=== PATIENT | male | born 1980 | race Hispanic/Latino ===

== ENCOUNTER 2019-06-19 21:25 | Emergency (ER) | payer OTHER ==
[2019-06-19] MEDS ORDERED: CYCLOBENZAPRINE HCL 10 MG TABLET ONE (22:21)
[2019-06-19] MEDS ORDERED: TRAMADOL HCL 50 MG TABLET ONE (22:21)
== END 2019-06-19 23:40 | disposition home or self-care (01) ==
LOC: EDBD 21:25 → EDH 21:25 → EEVIPCON 21:25 → EDH 23:40
DX: S13.9XXA Sprain of joints and ligaments of unspecified parts of neck, initial encounter (principal); Z72.0 Tobacco use; X58.XXXA Exposure to other specified factors, initial encounter; Y93.89 Activity, other specified; Y92.89 Other specified places as the place of occurrence of the external cause; Y99.8 Other external cause status
CPT/HCPCS: 72040; 72125

== ENCOUNTER → 2019-07-29 | Outpatient (CLI) | payer OTHER | END | disposition home or self-care (01) | LOC: EEVIPCON 13:45 → RAH 13:45 | PROVIDERS: ATTEND Internal Medicine | DX: G44.309 Post-traumatic headache, unspecified, not intractable (principal) | CPT/HCPCS: 70450 ==